=== PATIENT | female | born 1955 | race Hispanic/Latino ===

== ENCOUNTER 2019-02-17 17:15 | Emergency (ER) | payer MEDICARE ==
[~2019-02-17] VITALS: Ht 157.5 cm; Wt 70.0 kg
[~2019-02-17 17:15] MED LIST: LISINOPRIL20 MG PO; LUNESTA3 MG PO; NEXIUM40 M1 PO; TORADOL OR; ZOFRAN ODT8 MG OR
[2019-02-17 17:22] VITALS: BP 168/84
[2019-02-17] MEDS ORDERED: ULTRAM50 M1 PO (17:43)
[2019-02-17] MEDS ORDERED: LAMICTAL25 MG PO (18:03)
== END 2019-02-17 18:08 | disposition home or self-care (01) ==
LOC: ED 17:15
DX: G50.0 Trigeminal neuralgia (principal); I10 Essential (primary) hypertension

== ENCOUNTER 2019-02-27 09:54 | Emergency (ER) | payer MEDICARE ==
[~2019-02-27] VITALS: Ht 157.5 cm; Wt 56.8 kg
[~2019-02-27 09:54] MED LIST changes: +LAMICTAL25 MG PO; +ULTRAM50 M1 PO
[2019-02-27 12:12] LABS: HEMATOCRIT 40.2 % (37.0-47.0); HEMOGLOBIN 12.8 g/dl (12.0-16.0); IMMATURE GRANULOCYTES 0.8 % (0.0-5.0); MEAN CELL VOLUME 97.8 fL CALC (80.0-100.0); MEAN CORPUSCULAR HGB 31.1 pG CALC (26.0-32.0); MEAN CORPUSCULAR HGB CONC 31.8 g/L CALC (32.0-36.0); NEUT# 3.53 thou/uL (2.00-7.15); RED BLOOD COUNT 4.11 mill/uL (4.20-5.60); RED CELL DISTRI WIDTH 13.9 % (11.5-15.5)
[2019-02-27 12:15] LABS: BARBITURATES NEGATIVE (NEGATIVE); COCAINE NEGATIVE (NEGATIVE); METHADONE NEGATIVE (NEGATIVE); OXCYCODONE POSITIVE (NEGATIVE); TETRAHYDROCANNABIONOL NEGATIVE (NEGATIVE); TRICYLIC ANTIDEPRESSANTS NEGATIVE (NEGATIVE)
[2019-02-27 12:27] LABS: ALBUMIN 3.9 g/dL (3.2-5.0); ALKALINE PHOSPHATASE 122 u/l (38-126); ANION GAP 14 (6-22 (CALC)); BILIRUBIN, TOTAL 0.5 mg/dL (0.0-1.4); BUN 23 mg/dL (8-23); BUN/CREATININE RATIO 31 (12-20 (CALC)); CARBON DIOXIDE 22 mmol/l (22-30); CHLORIDE 109 mmol/l (95-108); CREATININE 0.7 mg/dL (0.5-1.0); GFR > 60 ML/MIN (>=60 (CALC)); GFR FOR AFR.AMER. > 60 ML/MIN (>=60 (CALC)); POTASSIUM 5.1 mmol/l (3.5-5.1); SGOT/AST 19 u/l (9-36); SODIUM 141 mmol/l (137-146); TOTAL PROTEIN 6.7 g/dL (6.3-8.2)
[2019-02-27 12:33] VITALS: BP 161/97
== END 2019-02-27 12:42 | disposition home or self-care (01) ==
LOC: ED 09:54
PROVIDERS: Emergency Medicine
DX: R51 Headache (principal); G89.29 Other chronic pain; R11.2 Nausea with vomiting, unspecified; G50.0 Trigeminal neuralgia

== ENCOUNTER 2019-04-23 15:33 | Emergency (ER) | payer MEDICARE ==
[~2019-04-23] VITALS: Ht 157.5 cm; Wt 50.0 kg
[2019-04-23] MEDS ORDERED: LORTAB 1010 MG PO (16:20)
[2019-04-23] MEDS ORDERED: TEGRETOL XR100 MG PO (16:22)
[2019-04-23 16:27] VITALS: BP 149/100
== END 2019-04-23 16:36 | disposition home or self-care (01) ==
LOC: ED 15:33
DX: G89.29 Other chronic pain (principal); R51 Headache; G50.0 Trigeminal neuralgia; I10 Essential (primary) hypertension; Z86.73 Personal history of transient ischemic attack (TIA), and cerebral infarction without residual deficits

== ENCOUNTER 2019-04-24 02:24 | Emergency (ER) | payer MEDICARE ==
[~2019-04-24] VITALS: Ht 157.5 cm; Wt 588.8 kg
[~2019-04-24 02:24] MED LIST changes: +LORTAB 1010 MG PO; +TEGRETOL XR100 MG PO
[2019-04-24 03:50] VITALS: BP 130/86
== END 2019-04-24 03:50 | disposition home or self-care (01) ==
LOC: ED 02:24
DX: R51 Headache (principal); G50.0 Trigeminal neuralgia; R11.0 Nausea